=== PATIENT | male | born 1940 | race Two or more races ===

== ENCOUNTER 2018-11-23 01:53 | Inpatient (IN) | payer MEDICARE, BC ==
[2018-11-23] MEDS ORDERED: PROPOFOL 100 ML (02:12)
[2018-11-23] MEDS ORDERED: SODIUM CHLORIDE 0.9% 500 ML BAG IV* (02:12)
[2018-11-23 02:21] LABS: ADD MAN DIFF? NO
[2018-11-23 02:22] LABS: ABNORMAL IP MESSAGE 1; BASOPHIL # 0.1 10^3/ul (0.0-0.1); BASOPHILS % 0.5 % (0.0-2.0); EOSINOPHILS # 0.4 10^3/ul (0.0-0.5); EOSINOPHILS % 1.8 % (0.0-7.0); HEMATOCRIT 50.4 % (42.0-52.0); HEMOGLOBIN 15.1 g/dl (14.0-18.0); LYMPHOCYTES # 6.4 10^3/ul (0.8-2.9); LYMPHOCYTES % 30.8 % (15.0-51.0); MEAN CORPUSCULAR HEMOGLOBIN 27.9 pg (29.0-33.0); MEAN CORPUSCULAR VOLUME 93.2 fl (82.0-101.0); MEAN PLATELET VOLUME 11.6 fl (7.4-10.4); MONOCYTE # 1.4 10^3/ul (0.3-0.9); MONOCYTES % 6.9 % (0.0-11.0); NEUTROPHIL # 12.3 10^3/ul (1.6-7.5); NEUTROPHILS % 59.3 % (39.0-77.0); PLATELET COUNT 244 10^3/UL (140-415); POSITIVE DIFF @See below; RED BLOOD COUNT 5.41 10^6/ul (4.70-6.10); RED CELL DISTRIBUTION WIDTH 14.4 % (11.5-14.5)
[2018-11-23 02:22] LABS: WHITE BLOOD COUNT 20.8 10^3/ul (4.8-10.8)
[2018-11-23] MEDS ORDERED: OCULAR LUBRICANT 3.5 GM OPH OINT BOTH EYES ×2 (02:30→06:00)
[2018-11-23 02:43] LABS: INR 1.02; PROTIME 13.5 Sec (11.9-14.9); PT RATIO 1.1
[2018-11-23 02:44] LABS: ALANINE AMINOTRANSFERASE 42 IU/L (13-69); ALBUMIN 4.2 g/dl (3.3-4.9); ALKALINE PHOSPHATASE 78 IU/L (42-121); ANION GAP 16 (5-13); ASPARTATE AMINO TRANSFERASE 57 IU/L (15-46); BILIRUBIN,INDIRECT 0.3 mg/dl (0-1.1); BILIRUBIN,TOTAL 0.3 mg/dl (0.2-1.3); BLOOD UREA NITROGEN 20 mg/dl (7-20); CALCIUM 9.1 mg/dl (8.4-10.2); CARBON DIOXIDE 23 mmol/L (21-31); CHLORIDE 102 mmol/L (97-110); CREATININE 1.41 mg/dl (0.61-1.24); GLUCOSE 292 mg/dl (70-220); PARTIAL THROMBOPLASTIN TIME 28.1 Sec (23.0-35.0); PHOSPHORUS 5.4 mg/dl (2.5-4.9); POTASSIUM 5.5 mmol/L (3.5-5.1); SODIUM 141 mmol/L (135-144); TOTAL PROTEIN 7.7 g/dl (6.1-8.1)
[2018-11-23 02:55] LABS: TROPONIN-I < 0.012 ng/ml (0.000-0.120)
[2018-11-23] MEDS ORDERED: SOD CHLORIDE 0.9% 1,000 ML IV (03:00)
[2018-11-23] MEDS: VECURONIUM 100 MG in DEXTROSE 5% 100 ML IV (03:11)
[2018-11-23] MEDS: NORepinephrine 8MG/250 ML (PMX 250 ML IV (03:13)
[2018-11-23 03:16] LABS: AADO2 Arterial 507.1 mmHg (7.0-24.0); Allen Test ACCEPTAB; Arterial Base Excess -3.8 mmol/L (-3.0-3); Arterial COHb 0.3 % (0.0-3.0); Arterial Fraction of Oxyhgb 97.5 % (93.0-99.0); Arterial HCO3 24.8 mmol/L (22.0-26.0); Arterial MetHb 0.2 % (0.0-1.5); Arterial pCO2 60.7 mmhg (35-45); MODE VENT - AC; Site Right Radial
[2018-11-23] MEDS ORDERED: ACETAMINOPHEN 650MG/20.3ML CUP PO (04:30)
[2018-11-23] MEDS ORDERED: ACCU-CHEK XX ×2 (04:30→06:00)
[2018-11-23] MEDS ORDERED: MEPERIDINE 25 MG INJ IV ×2 (04:30)
[2018-11-23] MEDS ORDERED: DEXTROSE 50% 50 ML SYRINGE IV ×4 (04:30→06:00)
[2018-11-23] MEDS ORDERED: ACETAMINOPHEN 650 MG SUPP PR (04:30)
[2018-11-23 04:33] LABS: ADD UMIC YES; UR ASCORBIC ACID NEGATIVE (NEGATIVE); UR BACTERIA FEW /HPF (NONE SEEN); UR BILIRUBIN (Dip) NEGATIVE (NEGATIVE); UR BLOOD (Dip) NEGATIVE (NEGATIVE); UR CLARITY SLIGHTLY CLOUDY (CLEAR); UR COLOR YELLOW (YELLOW); UR GLUCOSE (Dip) 1+ mg/dL (NEGATIVE); UR KETONES (Dip) NEGATIVE (NEGATIVE); UR LEUKOCYTE ESTERASE (Dip) NEGATIVE Leu/ul (NEGATIVE); UR NITRITE (Dip) NEGATIVE (NEGATIVE); UR RBC 3 /HPF (0-5); UR SPECIFIC GRAVITY (Dip) 1.012 (1.003-1.030); UR TOTAL PROTEIN (Dip) 3+ mg/dl (NEGATIVE); UR UROBILINOGEN (Dip) NEGATIVE (NEGATIVE); UR WBC 3 /HPF (0-5)
[2018-11-23] MEDS ORDERED: SOD CHLORIDE 0.9% 500 ML IV (05:00)
[2018-11-23] MEDS: SOD CHLORIDE 0.9% 100 ML (05:40)
[2018-11-23] MEDS: IODIXANOL LOCM 100 ML BTL (05:40)
[2018-11-23] MEDS ORDERED: ARTIFICIAL TEARS 15 ML OPH BOTH EYES (06:00)
[2018-11-23] MEDS ORDERED: INSULIN HUMAN REGULAR 100 UNIT in SOD CHLORIDE 0.9% 99 ML IV (06:00)
[2018-11-23] MEDS: SOD CHLORIDE 0.9% 1,000 ML IV ×2 (06:43→21:00)
[2018-11-23] MEDS: PROPOFOL 100 ML IV ×7 (06:43→20:19)
[2018-11-23 06:52] LABS: ADD MAN DIFF? NO
[2018-11-23 06:54] LABS: BASOPHILS % 0.2 % (0.0-2.0); EOSINOPHILS # 0.1 10^3/ul (0.0-0.5); EOSINOPHILS % 0.6 % (0.0-7.0); HEMATOCRIT 39.1 % (42.0-52.0); HEMOGLOBIN 12.1 g/dl (14.0-18.0); LYMPHOCYTES # 0.8 10^3/ul (0.8-2.9); LYMPHOCYTES % 7.3 % (15.0-51.0); MEAN CORPUSCULAR HEMOGLOBIN 27.9 pg (29.0-33.0); MEAN CORPUSCULAR HGB CONC 30.9 g/dl (32.0-37.0); MEAN CORPUSCULAR VOLUME 90.1 fl (82.0-101.0); MEAN PLATELET VOLUME 11.1 fl (7.4-10.4); MONOCYTE # 0.7 10^3/ul (0.3-0.9); MONOCYTES % 6.6 % (0.0-11.0); NEUTROPHIL # 9.2 10^3/ul (1.6-7.5); NEUTROPHILS % 84.5 % (39.0-77.0); PLATELET COUNT 178 10^3/UL (140-415); RED BLOOD COUNT 4.34 10^6/ul (4.70-6.10); RED CELL DISTRIBUTION WIDTH 14.2 % (11.5-14.5)
[2018-11-23 06:54] LABS: WHITE BLOOD COUNT 10.8 10^3/ul (4.8-10.8)
[2018-11-23] MEDS ORDERED: PROPOFOL 200 MG INJ (07:00)
[2018-11-23] MEDS ORDERED: VANCOMYCIN IV PER PHARMACY XX (07:00)
[2018-11-23] MEDS ORDERED: ETOMIDATE 20 MG INJ (07:00)
[2018-11-23] MEDS ORDERED: SUCCINYLCHOLINE CHLORIDE 100 MG/5 ML SYG IV (07:00)
[2018-11-23 07:22] LABS: ALANINE AMINOTRANSFERASE 62 IU/L (13-69); ALBUMIN 3.2 g/dl (3.3-4.9); ALBUMIN/GLOBULIN RATIO 1.18; ALKALINE PHOSPHATASE 61 IU/L (42-121); ANION GAP 8 (5-13); ASPARTATE AMINO TRANSFERASE 63 IU/L (15-46); BILIRUBIN,INDIRECT 0.3 mg/dl (0-1.1); BILIRUBIN,TOTAL 0.3 mg/dl (0.2-1.3); BLOOD UREA NITROGEN 21 mg/dl (7-20); CALCIUM 8.4 mg/dl (8.4-10.2); CARBON DIOXIDE 26 mmol/L (21-31); CHLORIDE 104 mmol/L (97-110); CREATININE 1.38 mg/dl (0.61-1.24); GLUCOSE 217 mg/dl (70-220); POTASSIUM 4.7 mmol/L (3.5-5.1); SODIUM 138 mmol/L (135-144); TOTAL PROTEIN 5.9 g/dl (6.1-8.1)
[2018-11-23 07:28] LABS: MAGNESIUM 1.5 mg/dl (1.7-2.5)
[2018-11-23 07:28] LABS: CREATINE KINASE 78 IU/L (23-200)
[2018-11-23 07:42] LABS: CK-MB 1.59 ng/ml (0.0-2.4); TROPONIN-I 0.076 ng/ml (0.000-0.120)
[2018-11-23] MEDS: PIPER-TAZO 3.375 GM IV (PMX) 100 ML IVPB ×3 (08:22→17:12)
[2018-11-23 08:44] LABS: ADD MAN DIFF? NO
[2018-11-23] MEDS: INSULIN ASPART [NOVOLOG] 3 ML PEN SC ×4 (08:44→20:53)
[2018-11-23 08:53] LABS: BASOPHILS % 0.3 % (0.0-2.0); EOSINOPHILS # 0.1 10^3/ul (0.0-0.5); EOSINOPHILS % 0.5 % (0.0-7.0); HEMATOCRIT 37.8 % (42.0-52.0); HEMOGLOBIN 12.1 g/dl (14.0-18.0); LYMPHOCYTES # 0.9 10^3/ul (0.8-2.9); LYMPHOCYTES % 8.8 % (15.0-51.0); MEAN CORPUSCULAR HEMOGLOBIN 28.2 pg (29.0-33.0); MEAN CORPUSCULAR VOLUME 88.1 fl (82.0-101.0); MONOCYTE # 0.6 10^3/ul (0.3-0.9); MONOCYTES % 5.9 % (0.0-11.0); NEUTROPHIL # 8.5 10^3/ul (1.6-7.5); NEUTROPHILS % 83.9 % (39.0-77.0); PLATELET COUNT 171 10^3/UL (140-415); RED BLOOD COUNT 4.29 10^6/ul (4.70-6.10); RED CELL DISTRIBUTION WIDTH 14.5 % (11.5-14.5)
[2018-11-23 08:53] LABS: WHITE BLOOD COUNT 10.1 10^3/ul (4.8-10.8)
[2018-11-23 09:21] LABS: ALANINE AMINOTRANSFERASE 57 IU/L (13-69); ALBUMIN 3.2 g/dl (3.3-4.9); ALBUMIN/GLOBULIN RATIO 1.14; ALKALINE PHOSPHATASE 49 IU/L (42-121); ANION GAP 10 (5-13); ASPARTATE AMINO TRANSFERASE 52 IU/L (15-46); BILIRUBIN,INDIRECT 0.1 mg/dl (0-1.1); BILIRUBIN,TOTAL 0.1 mg/dl (0.2-1.3); BLOOD UREA NITROGEN 22 mg/dl (7-20); CALCIUM 8.3 mg/dl (8.4-10.2); CARBON DIOXIDE 25 mmol/L (21-31); CHLORIDE 101 mmol/L (97-110); CREATINE KINASE 73 IU/L (23-200); CREATININE 1.38 mg/dl (0.61-1.24); GLUCOSE 197 mg/dl (70-220); POTASSIUM 4.3 mmol/L (3.5-5.1); SODIUM 136 mmol/L (135-144)
[2018-11-23 09:36] LABS: CK INDEX 2.2; CK-MB 1.63 ng/ml (0.0-2.4); TROPONIN-I 0.091 ng/ml (0.000-0.120)
[2018-11-23 09:56] LABS: MAGNESIUM 1.5 mg/dl (1.7-2.5)
[2018-11-23 10:03] LABS: B-TYPE NATRIURETIC PEPTIDE 2490 PG/ML (0-450)
[2018-11-23 10:28] LABS: AADO2 Arterial 396.3 mmHg (7.0-24.0); Allen Test ACCEPTAB; Arterial Base Excess -0.1 mmol/L (-3.0-3); Arterial Blood Gas Oxygen Sat 98.5 mmHG (95.0-100.0); Arterial COHb 0.3 % (0.0-3.0); Arterial Fraction of Oxyhgb 98.1 % (93.0-99.0); Arterial HCO3 23.5 mmol/L (22.0-26.0); Arterial MetHb 0.1 % (0.0-1.5); Arterial pCO2 34.9 mmhg (35-45); MODE VENT - AC; Site Right Radial
[2018-11-23 10:47] LABS: AADO2 Arterial 416.9 mmHg (7.0-24.0); Arterial Base Excess -0.2 mmol/L (-3.0-3); Arterial Blood Gas Oxygen Sat 97.7 mmHG (95.0-100.0); Arterial COHb 0.3 % (0.0-3.0); Arterial Fraction of Oxyhgb 97.2 % (93.0-99.0); Arterial HCO3 25.3 mmol/L (22.0-26.0); Arterial MetHb 0.2 % (0.0-1.5); Arterial pCO2 44.5 mmhg (35-45); MODE VENT - AC; Site Right Radial
[2018-11-23] MEDS: VANCOMYCIN HCL 2 GM in SOD CHLORIDE 0.9% 500 ML IVPB (11:13)
[2018-11-23] MEDS: ASPIRIN 300 MG SUPP PR (13:00)
[2018-11-23] MEDS: MAGNESIUM SULFATE 2 GM/50 ML 50 ML IVPB (15:08)
[2018-11-23 17:41] LABS: CREATINE KINASE 56 IU/L (23-200)
[2018-11-23 17:54] LABS: CK INDEX 2.2; CK-MB 1.25 ng/ml (0.0-2.4); TROPONIN-I 0.053 ng/ml (0.000-0.120)
[2018-11-23] MEDS: VANCOMYCIN 750 MG (PMX) 250 ML IVPB (21:00)
[2018-11-23 23:12] LABS: CREATINE KINASE 56 IU/L (23-200)
[2018-11-23 23:22] LABS: CK INDEX 1.7; CK-MB 0.96 ng/ml (0.0-2.4); TROPONIN-I 0.056 ng/ml (0.000-0.120)
[2018-11-24] MEDS: PIPER-TAZO 3.375 GM IV (PMX) 100 ML IVPB ×4 (00:03→17:40)
[2018-11-24] MEDS: INSULIN ASPART [NOVOLOG] 3 ML PEN SC ×6 (00:10→21:00)
[2018-11-24] MEDS: PROPOFOL 100 ML IV ×6 (03:29→21:48)
[2018-11-24] MEDS ORDERED: ACETAMINOPHEN 650MG/20.3ML CUP PO (04:30)
[2018-11-24] MEDS ORDERED: ACETAMINOPHEN 650 MG SUPP PR (04:30)
[2018-11-24 05:19] LABS: ADD MAN DIFF? NO
[2018-11-24 05:26] LABS: BASOPHILS % 0.4 % (0.0-2.0); EOSINOPHILS # 0.2 10^3/ul (0.0-0.5); EOSINOPHILS % 1.9 % (0.0-7.0); HEMATOCRIT 36.1 % (42.0-52.0); HEMOGLOBIN 11.3 g/dl (14.0-18.0); LYMPHOCYTES # 0.7 10^3/ul (0.8-2.9); LYMPHOCYTES % 7.8 % (15.0-51.0); MEAN CORPUSCULAR HEMOGLOBIN 27.8 pg (29.0-33.0); MEAN CORPUSCULAR HGB CONC 31.3 g/dl (32.0-37.0); MEAN CORPUSCULAR VOLUME 88.9 fl (82.0-101.0); MEAN PLATELET VOLUME 11.5 fl (7.4-10.4); MONOCYTE # 0.5 10^3/ul (0.3-0.9); MONOCYTES % 5.4 % (0.0-11.0); NEUTROPHIL # 7.5 10^3/ul (1.6-7.5); NEUTROPHILS % 84.1 % (39.0-77.0); PLATELET COUNT 152 10^3/UL (140-415); RED BLOOD COUNT 4.06 10^6/ul (4.70-6.10); RED CELL DISTRIBUTION WIDTH 14.4 % (11.5-14.5)
[2018-11-24 05:51] LABS: INR 1.14; PROTIME 14.7 Sec (11.9-14.9); PT RATIO 1.1
[2018-11-24 06:02] LABS: CREATINE KINASE 44 IU/L (23-200)
[2018-11-24 06:12] LABS: CHOL/HDL RATIO 8.1 RATIO; HDL CHOLESTEROL 20 mg/dl (31-75); LDL CHOLESTEROL,CALCULATED 49 mg/dl; TRIGLYCERIDES 472 mg/dl (0-149)
[2018-11-24 06:12] LABS: CHOLESTEROL 163 mg/dl (100-200)
[2018-11-24 06:16] LABS: CK INDEX 1.1; CK-MB 0.47 ng/ml (0.0-2.4); TROPONIN-I 0.044 ng/ml (0.000-0.120)
[2018-11-24 06:19] LABS: B-TYPE NATRIURETIC PEPTIDE 1320 PG/ML (0-450)
[2018-11-24 06:20] LABS: ALANINE AMINOTRANSFERASE 46 IU/L (13-69); ALBUMIN/GLOBULIN RATIO 1.07; ALKALINE PHOSPHATASE 41 IU/L (42-121); ANION GAP 10 (5-13); ASPARTATE AMINO TRANSFERASE 27 IU/L (15-46); BILIRUBIN,INDIRECT 0.2 mg/dl (0-1.1); BILIRUBIN,TOTAL 0.2 mg/dl (0.2-1.3); BLOOD UREA NITROGEN 21 mg/dl (7-20); CALCIUM 7.9 mg/dl (8.4-10.2); CARBON DIOXIDE 26 mmol/L (21-31); CHLORIDE 104 mmol/L (97-110); CREATININE 1.61 mg/dl (0.61-1.24); GLUCOSE 147 mg/dl (70-220); MAGNESIUM 1.9 mg/dl (1.7-2.5); SODIUM 140 mmol/L (135-144); TOTAL PROTEIN 5.8 g/dl (6.1-8.1)
[2018-11-24] MEDS: SOD CHLORIDE 0.9% 1,000 ML IV ×2 (07:00→17:31)
[2018-11-24 07:34] LABS: HEMOGLOBIN A1C 7.4 % (0-5.9)
[2018-11-24] MEDS: ASPIRIN 300 MG SUPP PR (09:00)
[2018-11-24] MEDS: VANCOMYCIN 750 MG (PMX) 250 ML IVPB ×2 (09:35→22:53)
[2018-11-24 10:19] LABS: AADO2 Arterial 88.3 mmHg (7.0-24.0); Allen Test ACCEPTAB; Arterial Base Excess -0.6 mmol/L (-3.0-3); Arterial Blood Gas Oxygen Sat 94.2 mmHG (95.0-100.0); Arterial COHb 0.3 % (0.0-3.0); Arterial Fraction of Oxyhgb 93.7 % (93.0-99.0); Arterial HCO3 24.6 mmol/L (22.0-26.0); Arterial MetHb 0.2 % (0.0-1.5); Arterial pCO2 42.4 mmhg (35-45); Blood Gas PS 10; MODE VENT - CPAP; Site Right Radial
[2018-11-24] MEDS: FAMOTIDINE 20 MG INJ IV (11:40)
[2018-11-24] MEDS: ENOXAPARIN 40 MG/0.4 ML SYG SC (11:58)
[2018-11-24] MEDS ORDERED: ETOMIDATE 20 MG INJ (12:00)
[2018-11-24] MEDS ORDERED: ROCURONIUM 50 MG INJ (12:00)
[2018-11-24 13:55] LABS: AADO2 Arterial 564.5 mmHg (7.0-24.0); Allen Test ACCEPTAB; Arterial Base Excess -5.5 mmol/L (-3.0-3); Arterial Blood Gas Oxygen Sat 95.2 mmHG (95.0-100.0); Arterial COHb 0.3 % (0.0-3.0); Arterial Fraction of Oxyhgb 94.7 % (93.0-99.0); Arterial HCO3 22.9 mmol/L (22.0-26.0); Arterial MetHb 0.2 % (0.0-1.5); MODE VENT - AC; Site Right Radial
[2018-11-24] MEDS ORDERED: LEVALBUTEROL (NEB) 0.63 MG/3 ML AMP HHN (14:00)
[2018-11-24] MEDS: ASPIRIN 81 MG TAB NGT (14:11)
[2018-11-24] MEDS: ACETAMINOPHEN 650MG/20.3ML CUP NGT ×2 (14:12→18:36)
[2018-11-24] MEDS: ALBUTEROL HFA 8 GM INHALER INH (20:09)
[2018-11-24] MEDS ORDERED: ATORVASTATIN 40 MG TAB PO (21:00)
[2018-11-24] MEDS: ATORVASTATIN 40 MG TAB NGT (21:49)
[2018-11-24 22:40] LABS: VANCOMYCIN,TROUGH 14.3 ug/ml (10.0-20.0)
[2018-11-25] MEDS: PIPER-TAZO 3.375 GM IV (PMX) 100 ML IVPB ×4 (00:25→22:46)
[2018-11-25] MEDS: INSULIN ASPART [NOVOLOG] 3 ML PEN SC ×6 (00:32→21:00)
[2018-11-25] MEDS: MIDAZOLAM (DRIP) 50 mg/50 mL 50 ML IV ×6 (00:58→22:53)
[2018-11-25] MEDS: PROPOFOL 100 ML IV ×2 (01:04→09:10)
[2018-11-25] MEDS: ALBUTEROL HFA 8 GM INHALER INH ×4 (01:35→20:15)
[2018-11-25 05:11] LABS: ADD MAN DIFF? NO
[2018-11-25 05:17] LABS: WHITE BLOOD COUNT 7.4 10^3/ul (4.8-10.8)
[2018-11-25 05:17] LABS: BASOPHILS % 0.5 % (0.0-2.0); EOSINOPHILS # 0.2 10^3/ul (0.0-0.5); EOSINOPHILS % 2.2 % (0.0-7.0); HEMATOCRIT 32.9 % (42.0-52.0); HEMOGLOBIN 10.4 g/dl (14.0-18.0); LYMPHOCYTES # 0.9 10^3/ul (0.8-2.9); LYMPHOCYTES % 11.7 % (15.0-51.0); MEAN CORPUSCULAR HEMOGLOBIN 28.3 pg (29.0-33.0); MEAN CORPUSCULAR HGB CONC 31.6 g/dl (32.0-37.0); MEAN CORPUSCULAR VOLUME 89.6 fl (82.0-101.0); MEAN PLATELET VOLUME 12.1 fl (7.4-10.4); MONOCYTE # 0.5 10^3/ul (0.3-0.9); MONOCYTES % 6.1 % (0.0-11.0); NEUTROPHIL # 5.8 10^3/ul (1.6-7.5); NEUTROPHILS % 79.1 % (39.0-77.0); PLATELET COUNT 149 10^3/UL (140-415); RED BLOOD COUNT 3.67 10^6/ul (4.70-6.10); RED CELL DISTRIBUTION WIDTH 14.8 % (11.5-14.5)
[2018-11-25] MEDS: SOD CHLORIDE 0.9% 1,000 ML IV (05:24)
[2018-11-25 05:29] LABS: CREATINE KINASE 45 IU/L (23-200)
[2018-11-25 05:39] LABS: ALANINE AMINOTRANSFERASE 29 IU/L (13-69); ALBUMIN 2.7 g/dl (3.3-4.9); ALBUMIN/GLOBULIN RATIO 1.12; ALKALINE PHOSPHATASE 34 IU/L (42-121); ANION GAP 13 (5-13); ASPARTATE AMINO TRANSFERASE 18 IU/L (15-46); B-TYPE NATRIURETIC PEPTIDE 2780 PG/ML (0-450); BILIRUBIN,INDIRECT 0.2 mg/dl (0-1.1); BILIRUBIN,TOTAL 0.2 mg/dl (0.2-1.3); BLOOD UREA NITROGEN 23 mg/dl (7-20); CALCIUM 7.5 mg/dl (8.4-10.2); CARBON DIOXIDE 22 mmol/L (21-31); CHLORIDE 107 mmol/L (97-110); CREATININE 2.16 mg/dl (0.61-1.24); GLUCOSE 134 mg/dl (70-220); MAGNESIUM 1.8 mg/dl (1.7-2.5); POTASSIUM 3.7 mmol/L (3.5-5.1); SODIUM 142 mmol/L (135-144); TOTAL PROTEIN 5.1 g/dl (6.1-8.1)
[2018-11-25 05:41] LABS: CK INDEX 0.6; CK-MB 0.27 ng/ml (0.0-2.4); TROPONIN-I 0.046 ng/ml (0.000-0.120)
[2018-11-25] MEDS: ASPIRIN 81 MG TAB NGT (09:04)
[2018-11-25] MEDS: FAMOTIDINE 20 MG INJ IV (09:05)
[2018-11-25] MEDS: ENOXAPARIN 40 MG/0.4 ML SYG SC (09:07)
[2018-11-25] MEDS ORDERED: ALTEPLASE (CATHFLO) 2 MG INJ CATHETER (09:30)
[2018-11-25] MEDS: VANCOMYCIN 750 MG (PMX) 250 ML IVPB (10:10)
[2018-11-25] MEDS: FUROSEMIDE 40 MG INJ IV (10:17)
[2018-11-25] MEDS ORDERED: FUROSEMIDE 40 MG INJ IV (10:30)
[2018-11-25] MEDS ORDERED: FENTAnyl (DRIP) 1000 mcg/100mL 100 ML IV (11:00)
[2018-11-25] MEDS: FENTAnyl (DRIP) 1000 mcg/100mL 100 ML IV ×2 (12:15→22:42)
[2018-11-25] MEDS: ACETAMINOPHEN 650MG/20.3ML CUP NGT (14:23)
[2018-11-25 15:38] LABS: CREATININE,URINE RANDOM 31.59 mg/dl (20-370)
[2018-11-25 15:39] LABS: SODIUM,URINE RANDOM 127 mmol/L (30-90)
[2018-11-25 16:08] LABS: UR COLOR STRAW (YELLOW)
[2018-11-25 16:09] LABS: ADD UMIC YES; UR ASCORBIC ACID NEGATIVE (NEGATIVE); UR BILIRUBIN (Dip) NEGATIVE (NEGATIVE); UR BLOOD (Dip) 2+ mg/dL (NEGATIVE); UR CLARITY CLEAR (CLEAR); UR GLUCOSE (Dip) NEGATIVE (NEGATIVE); UR KETONES (Dip) NEGATIVE (NEGATIVE); UR LEUKOCYTE ESTERASE (Dip) 1+ Leu/ul (NEGATIVE); UR NITRITE (Dip) NEGATIVE (NEGATIVE); UR TOTAL PROTEIN (Dip) 1+ mg/dl (NEGATIVE); UR UROBILINOGEN (Dip) NEGATIVE (NEGATIVE); URINE PH (Dip) 5 (5.0-9.0)
[2018-11-25 16:18] LABS: UR AMORPHOUS CRYSTAL FEW /HPF (NONE SEEN); UR RBC 76 /HPF (0-5); UR WBC 15 /HPF (0-5)
[2018-11-25] MEDS: ATORVASTATIN 40 MG TAB NGT (20:40)
[2018-11-25] MEDS ORDERED: hydrALAzine 20 MG INJ (21:05)
[2018-11-25] MEDS: hydrALAzine 20 MG INJ IV (21:34)
[2018-11-25] MEDS: VANCOMYCIN HCL 1.25 GM in SOD CHLORIDE 0.9% 250 ML IVPB (22:47)
[2018-11-25] MEDS: LABETALOL HCL 20MG INJ IV (23:11)
[2018-11-26] MEDS: INSULIN ASPART [NOVOLOG] 3 ML PEN SC ×6 (00:49→21:00)
[2018-11-26] MEDS: ACETAMINOPHEN 650MG/20.3ML CUP NGT (00:51)
[2018-11-26] MEDS: ALBUTEROL HFA 8 GM INHALER INH ×4 (01:23→20:32)
[2018-11-26] MEDS: LORAZEPAM 2 MG INJ IV ×2 (01:36→06:46)
[2018-11-26] MEDS: hydrALAzine 20 MG INJ IV ×4 (01:36→23:35)
[2018-11-26 05:12] LABS: ADD MAN DIFF? NO
[2018-11-26 05:15] LABS: BASOPHILS % 0.4 % (0.0-2.0); EOSINOPHILS # 0.3 10^3/ul (0.0-0.5); EOSINOPHILS % 3.6 % (0.0-7.0); HEMATOCRIT 32.9 % (42.0-52.0); HEMOGLOBIN 10.4 g/dl (14.0-18.0); LYMPHOCYTES # 0.9 10^3/ul (0.8-2.9); LYMPHOCYTES % 13.3 % (15.0-51.0); MEAN CORPUSCULAR HEMOGLOBIN 28.4 pg (29.0-33.0); MEAN CORPUSCULAR HGB CONC 31.6 g/dl (32.0-37.0); MEAN CORPUSCULAR VOLUME 89.9 fl (82.0-101.0); MEAN PLATELET VOLUME 11.6 fl (7.4-10.4); MONOCYTE # 0.4 10^3/ul (0.3-0.9); MONOCYTES % 6.4 % (0.0-11.0); NEUTROPHIL # 5.2 10^3/ul (1.6-7.5); NEUTROPHILS % 75.7 % (39.0-77.0); PLATELET COUNT 155 10^3/UL (140-415); RED BLOOD COUNT 3.66 10^6/ul (4.70-6.10); RED CELL DISTRIBUTION WIDTH 14.8 % (11.5-14.5)
[2018-11-26 05:15] LABS: WHITE BLOOD COUNT 6.9 10^3/ul (4.8-10.8)
[2018-11-26 05:31] LABS: ANION GAP 7 (5-13); BLOOD UREA NITROGEN 23 mg/dl (7-20); CALCIUM 8.3 mg/dl (8.4-10.2); CARBON DIOXIDE 24 mmol/L (21-31); CHLORIDE 112 mmol/L (97-110); CREATININE 2.08 mg/dl (0.61-1.24); GLUCOSE 155 mg/dl (70-220); PHOSPHORUS 3.3 mg/dl (2.5-4.9); POTASSIUM 3.5 mmol/L (3.5-5.1); SODIUM 143 mmol/L (135-144)
[2018-11-26 05:42] LABS: ALANINE AMINOTRANSFERASE 24 IU/L (13-69); ALKALINE PHOSPHATASE 39 IU/L (42-121); ANION GAP 9 (5-13); ASPARTATE AMINO TRANSFERASE 18 IU/L (15-46); BILIRUBIN,INDIRECT 0.3 mg/dl (0-1.1); BILIRUBIN,TOTAL 0.3 mg/dl (0.2-1.3); BLOOD UREA NITROGEN 23 mg/dl (7-20); CALCIUM 8.1 mg/dl (8.4-10.2); CARBON DIOXIDE 25 mmol/L (21-31); CHLORIDE 109 mmol/L (97-110); CREATININE 2.25 mg/dl (0.61-1.24); GLUCOSE 157 mg/dl (70-220); MAGNESIUM 1.9 mg/dl (1.7-2.5); POTASSIUM 3.3 mmol/L (3.5-5.1); SODIUM 143 mmol/L (135-144)
[2018-11-26 05:48] LABS: B-TYPE NATRIURETIC PEPTIDE 3290 PG/ML (0-450)
[2018-11-26] MEDS: PIPER-TAZO 3.375 GM IV (PMX) 100 ML IVPB ×3 (06:42→21:15)
[2018-11-26] MEDS: ASPIRIN 81 MG TAB NGT (08:32)
[2018-11-26] MEDS: FAMOTIDINE 20 MG INJ IV (08:32)
[2018-11-26] MEDS: POTASSIUM CHLORIDE 20 MEQ POWDER FOR ORAL SOLN GTB (08:32)
[2018-11-26] MEDS: FUROSEMIDE 40 MG INJ IV (08:33)
[2018-11-26] MEDS: ENOXAPARIN 60 MG/0.6 ML SYG SC (08:34)
[2018-11-26] MEDS: MIDAZOLAM (DRIP) 50 mg/50 mL 50 ML IV ×3 (09:44→19:56)
[2018-11-26] MEDS: PROPOFOL 100 ML IV ×2 (10:09→21:58)
[2018-11-26] MEDS: ASCORBIC ACID 500 MG TAB NGT (11:31)
[2018-11-26] MEDS: ZINC SULFATE 220 MG CAP NGT (11:31)
[2018-11-26] MEDS: FENTAnyl (DRIP) 1000 mcg/100mL 100 ML IV ×2 (11:39→22:15)
[2018-11-26] MEDS ORDERED: POTASSIUM CHLORIDE 100 ML IVPB (13:30)
[2018-11-26] MEDS: POTASSIUM CHLORIDE 20 MEQ POWDER FOR ORAL SOLN NGT (13:39)
[2018-11-26] MEDS: ISOSORBIDE DINITRATE 20 MG TAB NGT ×2 (14:23→21:14)
[2018-11-26] MEDS: INSULIN GLARGINE [LANTus] (100 UNITS/ML) SYG SC (18:48)
[2018-11-26] MEDS: ATORVASTATIN 40 MG TAB NGT (21:14)
[2018-11-26] MEDS: BALSAM PERU/CASTOR OIL 60 GM TUBE TOP (21:17)
[2018-11-26] MEDS: VANCOMYCIN HCL 1.25 GM in SOD CHLORIDE 0.9% 250 ML IVPB (22:16)
[2018-11-27] MEDS: INSULIN ASPART [NOVOLOG] 3 ML PEN SC ×6 (01:09→21:04)
[2018-11-27] MEDS: ALBUTEROL HFA 8 GM INHALER INH ×4 (01:41→19:43)
[2018-11-27] MEDS: MIDAZOLAM (DRIP) 50 mg/50 mL 50 ML IV ×2 (02:09→11:52)
[2018-11-27] MEDS ORDERED: ALTEPLASE (CATHFLO) 2 MG INJ CATHETER (04:30)
[2018-11-27] MEDS: PIPER-TAZO 3.375 GM IV (PMX) 100 ML IVPB ×3 (05:02→21:02)
[2018-11-27 05:29] LABS: ADD MAN DIFF? NO
[2018-11-27 05:32] LABS: WHITE BLOOD COUNT 5.9 10^3/ul (4.8-10.8)
[2018-11-27 05:32] LABS: BASOPHILS % 0.3 % (0.0-2.0); EOSINOPHILS # 0.3 10^3/ul (0.0-0.5); EOSINOPHILS % 5.5 % (0.0-7.0); HEMATOCRIT 34.8 % (42.0-52.0); HEMOGLOBIN 10.8 g/dl (14.0-18.0); LYMPHOCYTES # 0.8 10^3/ul (0.8-2.9); LYMPHOCYTES % 13.8 % (15.0-51.0); MEAN CORPUSCULAR HEMOGLOBIN 27.8 pg (29.0-33.0); MEAN CORPUSCULAR VOLUME 89.7 fl (82.0-101.0); MEAN PLATELET VOLUME 11.4 fl (7.4-10.4); MONOCYTE # 0.4 10^3/ul (0.3-0.9); NEUTROPHIL # 4.3 10^3/ul (1.6-7.5); NEUTROPHILS % 73.1 % (39.0-77.0); PLATELET COUNT 184 10^3/UL (140-415); RED BLOOD COUNT 3.88 10^6/ul (4.70-6.10); RED CELL DISTRIBUTION WIDTH 14.9 % (11.5-14.5)
[2018-11-27 05:44] LABS: AADO2 Arterial 177.5 mmHg (7.0-24.0); Allen Test ACCEPTAB; Arterial Base Excess 0.7 mmol/L (-3.0-3); Arterial Blood Gas Oxygen Sat 93.6 mmHG (95.0-100.0); Arterial COHb 0.3 % (0.0-3.0); Arterial Fraction of Oxyhgb 93.3 % (93.0-99.0); Arterial HCO3 23.8 mmol/L (22.0-26.0); Arterial MetHb 0 % (0.0-1.5); Arterial pCO2 32.7 mmhg (35-45); Blood Gas Mean Airway Pressure 14; MODE VENT - AC; Site Right Radial
[2018-11-27 05:54] LABS: ANION GAP 12 (5-13); BLOOD UREA NITROGEN 27 mg/dl (7-20); CALCIUM 8.2 mg/dl (8.4-10.2); CARBON DIOXIDE 22 mmol/L (21-31); CHLORIDE 111 mmol/L (97-110); CREATININE 2.09 mg/dl (0.61-1.24); GLUCOSE 165 mg/dl (70-220); MAGNESIUM 1.9 mg/dl (1.7-2.5); PHOSPHORUS 3.1 mg/dl (2.5-4.9); POTASSIUM 3.7 mmol/L (3.5-5.1); SODIUM 145 mmol/L (135-144)
[2018-11-27] MEDS ORDERED: POTASSIUM CHLORIDE (SR) 20 MEQ TAB PO (08:30)
[2018-11-27 09:23] LABS: IRON 12 ug/dl (35-150)
[2018-11-27 09:34] LABS: % IRON SATURATION 5 % SAT (22-52); TOTAL IRON BINDING CAPACITY 245 ug/dl (241-421)
[2018-11-27] MEDS: INSULIN GLARGINE [LANTus] (100 UNITS/ML) SYG SC (09:50)
[2018-11-27] MEDS: BALSAM PERU/CASTOR OIL 60 GM TUBE TOP ×2 (09:51→20:16)
[2018-11-27] MEDS: ASCORBIC ACID 500 MG TAB NGT (09:52)
[2018-11-27] MEDS: ISOSORBIDE DINITRATE 20 MG TAB NGT ×3 (09:52→20:16)
[2018-11-27] MEDS: ASPIRIN 81 MG TAB NGT (09:52)
[2018-11-27] MEDS: ZINC SULFATE 220 MG CAP NGT (09:53)
[2018-11-27] MEDS: POTASSIUM CHLORIDE 20 MEQ POWDER FOR ORAL SOLN PO (09:53)
[2018-11-27] MEDS: FISH OIL 1,000 MG CAP PO ×2 (09:53→20:14)
[2018-11-27] MEDS: ACETAMINOPHEN 650MG/20.3ML CUP NGT (09:54)
[2018-11-27] MEDS: ENOXAPARIN 30 MG/0.3 ML SYG SC (09:57)
[2018-11-27] MEDS: FAMOTIDINE 20 MG INJ IV (10:03)
[2018-11-27] MEDS: FUROSEMIDE 40 MG INJ IV (10:04)
[2018-11-27] MEDS: PROPOFOL 100 ML IV ×2 (10:30→21:31)
[2018-11-27] MEDS: FENTAnyl (DRIP) 1000 mcg/100mL 100 ML IV (11:51)
[2018-11-27 11:56] LABS: PROCALCITONIN 0.62 ng/mL (<0.10)
[2018-11-27] MEDS: LORAZEPAM 2 MG INJ IV (14:46)
[2018-11-27] MEDS: SOD FERRIC GLUC COMPLX 125 MG in SOD CHLORIDE 0.9% 100 ML IVPB (18:31)
[2018-11-27] MEDS: ATORVASTATIN 40 MG TAB NGT (20:14)
[2018-11-27] MEDS: VANCOMYCIN HCL 1.25 GM in SOD CHLORIDE 0.9% 250 ML IVPB (22:29)
[2018-11-28] MEDS: MIDAZOLAM (DRIP) 50 mg/50 mL 50 ML IV (01:00)
[2018-11-28] MEDS: INSULIN ASPART [NOVOLOG] 3 ML PEN SC ×6 (01:00→20:33)
[2018-11-28] MEDS: ALBUTEROL HFA 8 GM INHALER INH ×4 (01:05→19:20)
[2018-11-28] MEDS: PIPER-TAZO 3.375 GM IV (PMX) 100 ML IVPB (05:06)
[2018-11-28 05:12] LABS: ADD MAN DIFF? NO
[2018-11-28 05:22] LABS: WHITE BLOOD COUNT 5.6 10^3/ul (4.8-10.8)
[2018-11-28 05:22] LABS: BASOPHILS % 0.4 % (0.0-2.0); EOSINOPHILS # 0.3 10^3/ul (0.0-0.5); EOSINOPHILS % 5.4 % (0.0-7.0); HEMATOCRIT 33.2 % (42.0-52.0); HEMOGLOBIN 10.3 g/dl (14.0-18.0); LYMPHOCYTES # 0.9 10^3/ul (0.8-2.9); LYMPHOCYTES % 15.6 % (15.0-51.0); MEAN CORPUSCULAR HEMOGLOBIN 27.6 pg (29.0-33.0); MEAN PLATELET VOLUME 11.6 fl (7.4-10.4); MONOCYTE # 0.5 10^3/ul (0.3-0.9); MONOCYTES % 8.6 % (0.0-11.0); NEUTROPHIL # 3.9 10^3/ul (1.6-7.5); NEUTROPHILS % 69.5 % (39.0-77.0); PLATELET COUNT 192 10^3/UL (140-415); RED BLOOD COUNT 3.73 10^6/ul (4.70-6.10); RED CELL DISTRIBUTION WIDTH 15.1 % (11.5-14.5)
[2018-11-28 05:49] LABS: PHOSPHORUS 3.5 mg/dl (2.5-4.9)
[2018-11-28 05:53] LABS: ALANINE AMINOTRANSFERASE 19 IU/L (13-69); ALBUMIN 3.2 g/dl (3.3-4.9); ALKALINE PHOSPHATASE 43 IU/L (42-121); ANION GAP 12 (5-13); ASPARTATE AMINO TRANSFERASE 20 IU/L (15-46); BILIRUBIN,INDIRECT 0.3 mg/dl (0-1.1); BILIRUBIN,TOTAL 0.3 mg/dl (0.2-1.3); BLOOD UREA NITROGEN 31 mg/dl (7-20); CALCIUM 8.5 mg/dl (8.4-10.2); CARBON DIOXIDE 25 mmol/L (21-31); CHLORIDE 110 mmol/L (97-110); CREATININE 2.25 mg/dl (0.61-1.24); GLUCOSE 160 mg/dl (70-220); POTASSIUM 3.7 mmol/L (3.5-5.1); SODIUM 147 mmol/L (135-144); TOTAL PROTEIN 6.1 g/dl (6.1-8.1)
[2018-11-28 08:48] LABS: AADO2 Arterial 177.1 mmHg (7.0-24.0); Allen Test ACCEPTAB; Arterial Base Excess 0.9 mmol/L (-3.0-3); Arterial Blood Gas Oxygen Sat 94.9 mmHG (95.0-100.0); Arterial COHb 0.1 % (0.0-3.0); Arterial Fraction of Oxyhgb 94.5 % (93.0-99.0); Arterial HCO3 23.4 mmol/L (22.0-26.0); Arterial MetHb 0.3 % (0.0-1.5); Arterial pCO2 30.9 mmhg (35-45); MODE VENT - AC; Site Right Radial
[2018-11-28] MEDS: FUROSEMIDE 40 MG INJ IV (09:19)
[2018-11-28] MEDS: FAMOTIDINE 20 MG INJ IV (09:22)
[2018-11-28] MEDS: ISOSORBIDE DINITRATE 20 MG TAB NGT ×3 (09:23→20:23)
[2018-11-28] MEDS: ASPIRIN 81 MG TAB NGT (09:23)
[2018-11-28] MEDS: ZINC SULFATE 220 MG CAP NGT (09:23)
[2018-11-28] MEDS: ASCORBIC ACID 500 MG TAB NGT (09:23)
[2018-11-28] MEDS: FISH OIL 1,000 MG CAP PO ×2 (09:24→20:25)
[2018-11-28] MEDS: ENOXAPARIN 30 MG/0.3 ML SYG SC (09:25)
[2018-11-28] MEDS: INSULIN GLARGINE [LANTus] (100 UNITS/ML) SYG SC (09:32)
[2018-11-28] MEDS: BALSAM PERU/CASTOR OIL 60 GM TUBE TOP ×2 (09:33→20:25)
[2018-11-28] MEDS: DEXMEDETOMIDINE HCL 200 MCG in SOD CHLORIDE 0.9% 48 ML IV ×3 (09:43→23:36)
[2018-11-28] MEDS: PROPOFOL 100 ML IV ×2 (10:30→20:26)
[2018-11-28] MEDS: SOD FERRIC GLUC COMPLX 125 MG in SOD CHLORIDE 0.9% 100 ML IVPB (13:06)
[2018-11-28] MEDS: LEVOFLOXACIN 250 MG TAB NGT (13:08)
[2018-11-28] MEDS: FENTAnyl (DRIP) 1000 mcg/100mL 100 ML IV (13:10)
[2018-11-28] MEDS: CLINDAMYCIN 300 MG/D5W (PMX) 50 ML IVPB ×3 (14:44→23:37)
[2018-11-28] MEDS: POTASSIUM CHLORIDE 100 ML IVPB (18:04)
[2018-11-28] MEDS: ATORVASTATIN 40 MG TAB NGT (20:23)
[2018-11-28 21:31] LABS: VANCOMYCIN,TROUGH 16.2 ug/ml (10.0-20.0)
[2018-11-28] MEDS: ACETAMINOPHEN 650MG/20.3ML CUP NGT (21:36)
[2018-11-28] MEDS: VANCOMYCIN HCL 1.25 GM in SOD CHLORIDE 0.9% 250 ML IVPB (23:37)
[2018-11-29] MEDS: ALBUTEROL HFA 8 GM INHALER INH ×4 (01:17→19:55)
[2018-11-29] MEDS: INSULIN ASPART [NOVOLOG] 3 ML PEN SC ×7 (01:45→23:46)
[2018-11-29] MEDS: hydrALAzine 20 MG INJ IV (03:34)
[2018-11-29] MEDS: CLINDAMYCIN 300 MG/D5W (PMX) 50 ML IVPB ×4 (05:07→23:07)
[2018-11-29] MEDS: LEVOFLOXACIN 250 MG TAB NGT (05:08)
[2018-11-29 05:21] LABS: ADD MAN DIFF? NO
[2018-11-29 05:28] LABS: WHITE BLOOD COUNT 6.5 10^3/ul (4.8-10.8)
[2018-11-29 05:28] LABS: BASOPHILS % 0.5 % (0.0-2.0); EOSINOPHILS # 0.3 10^3/ul (0.0-0.5); EOSINOPHILS % 4.5 % (0.0-7.0); HEMOGLOBIN 10.3 g/dl (14.0-18.0); LYMPHOCYTES # 1.2 10^3/ul (0.8-2.9); MEAN CORPUSCULAR HEMOGLOBIN 27.5 pg (29.0-33.0); MEAN CORPUSCULAR HGB CONC 30.3 g/dl (32.0-37.0); MEAN CORPUSCULAR VOLUME 90.7 fl (82.0-101.0); MEAN PLATELET VOLUME 11.6 fl (7.4-10.4); MONOCYTE # 0.7 10^3/ul (0.3-0.9); MONOCYTES % 10.6 % (0.0-11.0); NEUTROPHIL # 4.3 10^3/ul (1.6-7.5); NEUTROPHILS % 65.8 % (39.0-77.0); PLATELET COUNT 208 10^3/UL (140-415); RED BLOOD COUNT 3.75 10^6/ul (4.70-6.10); RED CELL DISTRIBUTION WIDTH 15.2 % (11.5-14.5)
[2018-11-29 06:02] LABS: ANION GAP 8 (5-13); BLOOD UREA NITROGEN 37 mg/dl (7-20); CALCIUM 9.1 mg/dl (8.4-10.2); CARBON DIOXIDE 25 mmol/L (21-31); CHLORIDE 114 mmol/L (97-110); CREATININE 2.56 mg/dl (0.61-1.24); GLUCOSE 195 mg/dl (70-220); MAGNESIUM 2.3 mg/dl (1.7-2.5); PHOSPHORUS 3.5 mg/dl (2.5-4.9); POTASSIUM 3.8 mmol/L (3.5-5.1); SODIUM 147 mmol/L (135-144)
[2018-11-29] MEDS: ACETAMINOPHEN 650MG/20.3ML CUP NGT (06:58)
[2018-11-29] MEDS: FENTAnyl (DRIP) 1000 mcg/100mL 100 ML IV (07:07)
[2018-11-29] MEDS: INSULIN GLARGINE [LANTus] (100 UNITS/ML) SYG SC (08:36)
[2018-11-29] MEDS: ENOXAPARIN 30 MG/0.3 ML SYG SC (08:37)
[2018-11-29] MEDS: ASPIRIN 81 MG TAB NGT (08:39)
[2018-11-29] MEDS: ASCORBIC ACID 500 MG TAB NGT (08:39)
[2018-11-29] MEDS: ISOSORBIDE DINITRATE 20 MG TAB NGT ×3 (08:40→20:25)
[2018-11-29] MEDS: ZINC SULFATE 220 MG CAP NGT (08:40)
[2018-11-29] MEDS: BALSAM PERU/CASTOR OIL 60 GM TUBE TOP ×2 (08:41→20:26)
[2018-11-29] MEDS: FISH OIL 1,000 MG CAP PO ×2 (08:41→20:25)
[2018-11-29] MEDS: FAMOTIDINE 20 MG INJ IV (08:45)
[2018-11-29] MEDS: PROPOFOL 100 ML IV ×2 (10:30→22:30)
[2018-11-29] MEDS: SOD FERRIC GLUC COMPLX 125 MG in SOD CHLORIDE 0.9% 100 ML IVPB (13:48)
[2018-11-29 15:01] LABS: CREATININE, RANDOM URINE 31 mg/dL (20-320); MICROALBUMIN 10.9 mg/dL; MICROALBUMIN/CREATININE RATIO 352 (<30)
[2018-11-29] MEDS: DEXMEDETOMIDINE HCL 200 MCG in SOD CHLORIDE 0.9% 48 ML IV (17:34)
[2018-11-29] MEDS: ATORVASTATIN 40 MG TAB NGT (20:25)
[2018-11-29] MEDS: VANCOMYCIN 1 GM 250 ML IVPB (23:40)
[2018-11-30] MEDS: DEXMEDETOMIDINE HCL 200 MCG in SOD CHLORIDE 0.9% 48 ML IV ×4 (00:45→20:23)
[2018-11-30] MEDS: ALBUTEROL HFA 8 GM INHALER INH ×4 (02:45→20:01)
[2018-11-30 05:12] LABS: ADD MAN DIFF? NO
[2018-11-30 05:19] LABS: BASOPHILS % 0.3 % (0.0-2.0); EOSINOPHILS # 0.3 10^3/ul (0.0-0.5); EOSINOPHILS % 3.1 % (0.0-7.0); HEMATOCRIT 33.8 % (42.0-52.0); HEMOGLOBIN 10.3 g/dl (14.0-18.0); LYMPHOCYTES # 1.2 10^3/ul (0.8-2.9); LYMPHOCYTES % 14.4 % (15.0-51.0); MEAN CORPUSCULAR HEMOGLOBIN 27.7 pg (29.0-33.0); MEAN CORPUSCULAR HGB CONC 30.5 g/dl (32.0-37.0); MEAN CORPUSCULAR VOLUME 90.9 fl (82.0-101.0); MEAN PLATELET VOLUME 11.4 fl (7.4-10.4); MONOCYTE # 0.7 10^3/ul (0.3-0.9); MONOCYTES % 8.4 % (0.0-11.0); NEUTROPHIL # 5.8 10^3/ul (1.6-7.5); NEUTROPHILS % 73.2 % (39.0-77.0); PLATELET COUNT 216 10^3/UL (140-415); RED BLOOD COUNT 3.72 10^6/ul (4.70-6.10); RED CELL DISTRIBUTION WIDTH 15.1 % (11.5-14.5)
[2018-11-30] MEDS: CLINDAMYCIN 300 MG/D5W (PMX) 50 ML IVPB ×3 (05:47→18:02)
[2018-11-30] MEDS: LEVOFLOXACIN 250 MG TAB NGT (05:50)
[2018-11-30] MEDS: INSULIN ASPART [NOVOLOG] 3 ML PEN SC ×5 (05:51→20:19)
[2018-11-30] MEDS: FENTAnyl (DRIP) 1000 mcg/100mL 100 ML IV (05:52)
[2018-11-30 06:08] LABS: ANION GAP 10 (5-13); BLOOD UREA NITROGEN 42 mg/dl (7-20); CARBON DIOXIDE 25 mmol/L (21-31); CHLORIDE 114 mmol/L (97-110); CREATININE 2.27 mg/dl (0.61-1.24); GLUCOSE 205 mg/dl (70-220); MAGNESIUM 2.3 mg/dl (1.7-2.5); PHOSPHORUS 4.2 mg/dl (2.5-4.9); POTASSIUM 4.1 mmol/L (3.5-5.1); SODIUM 149 mmol/L (135-144)
[2018-11-30] MEDS: ACETAMINOPHEN 650MG/20.3ML CUP NGT (06:23)
[2018-11-30] MEDS: FISH OIL 1,000 MG CAP PO ×2 (08:17→20:15)
[2018-11-30] MEDS: ASCORBIC ACID 500 MG TAB NGT (08:17)
[2018-11-30] MEDS: ISOSORBIDE DINITRATE 20 MG TAB NGT ×3 (08:17→20:15)
[2018-11-30] MEDS: ZINC SULFATE 220 MG CAP NGT (08:17)
[2018-11-30] MEDS: ASPIRIN 81 MG TAB NGT (08:17)
[2018-11-30] MEDS: FAMOTIDINE 20 MG INJ IV (08:17)
[2018-11-30] MEDS: BALSAM PERU/CASTOR OIL 60 GM TUBE TOP ×2 (08:18→20:25)
[2018-11-30] MEDS: INSULIN GLARGINE [LANTus] (100 UNITS/ML) SYG SC (08:19)
[2018-11-30] MEDS: ENOXAPARIN 30 MG/0.3 ML SYG SC (08:19)
[2018-11-30] MEDS: METOLAZONE 5 MG TAB PO (08:55)
[2018-11-30] MEDS: PROPOFOL 100 ML IV ×2 (09:50→20:25)
[2018-11-30] MEDS: SOD FERRIC GLUC COMPLX 125 MG in SOD CHLORIDE 0.9% 100 ML IVPB (12:31)
[2018-11-30] MEDS: ATORVASTATIN 40 MG TAB NGT (20:16)
[2018-12-01] MEDS: DEXMEDETOMIDINE HCL 200 MCG in SOD CHLORIDE 0.9% 48 ML IV ×12 (00:02→23:14)
[2018-12-01] MEDS: CLINDAMYCIN 300 MG/D5W (PMX) 50 ML IVPB ×2 (00:02→04:55)
[2018-12-01] MEDS: INSULIN ASPART [NOVOLOG] 3 ML PEN SC ×6 (00:12→21:05)
[2018-12-01] MEDS: VANCOMYCIN 1 GM 250 ML IVPB (00:14)
[2018-12-01] MEDS: ALBUTEROL HFA 8 GM INHALER INH ×5 (01:28→19:58)
[2018-12-01] MEDS: LEVOFLOXACIN 250 MG TAB NGT (04:55)
[2018-12-01 05:22] LABS: ADD MAN DIFF? NO
[2018-12-01 05:43] LABS: BASOPHILS % 0.4 % (0.0-2.0); EOSINOPHILS # 0.2 10^3/ul (0.0-0.5); EOSINOPHILS % 2.6 % (0.0-7.0); HEMATOCRIT 35.3 % (42.0-52.0); HEMOGLOBIN 10.7 g/dl (14.0-18.0); LYMPHOCYTES # 1.3 10^3/ul (0.8-2.9); LYMPHOCYTES % 18.3 % (15.0-51.0); MEAN CORPUSCULAR HEMOGLOBIN 27.9 pg (29.0-33.0); MEAN CORPUSCULAR HGB CONC 30.3 g/dl (32.0-37.0); MEAN CORPUSCULAR VOLUME 91.9 fl (82.0-101.0); MEAN PLATELET VOLUME 11.8 fl (7.4-10.4); MONOCYTE # 0.6 10^3/ul (0.3-0.9); MONOCYTES % 9.1 % (0.0-11.0); NEUTROPHIL # 4.8 10^3/ul (1.6-7.5); NEUTROPHILS % 68.6 % (39.0-77.0); PLATELET COUNT 205 10^3/UL (140-415); RED BLOOD COUNT 3.84 10^6/ul (4.70-6.10); RED CELL DISTRIBUTION WIDTH 14.9 % (11.5-14.5)
[2018-12-01 06:33] LABS: ANION GAP 10 (5-13); BLOOD UREA NITROGEN 44 mg/dl (7-20); CARBON DIOXIDE 25 mmol/L (21-31); CHLORIDE 113 mmol/L (97-110); CREATININE 2.13 mg/dl (0.61-1.24); GLUCOSE 232 mg/dl (70-220); MAGNESIUM 2.3 mg/dl (1.7-2.5); POTASSIUM 3.9 mmol/L (3.5-5.1); SODIUM 148 mmol/L (135-144)
[2018-12-01] MEDS: ASCORBIC ACID 500 MG TAB NGT (08:29)
[2018-12-01] MEDS: ASPIRIN 81 MG TAB NGT (08:29)
[2018-12-01] MEDS: ISOSORBIDE DINITRATE 20 MG TAB NGT ×3 (08:29→20:55)
[2018-12-01] MEDS: FISH OIL 1,000 MG CAP PO ×2 (08:29→20:54)
[2018-12-01] MEDS: ZINC SULFATE 220 MG CAP NGT (08:29)
[2018-12-01] MEDS: BALSAM PERU/CASTOR OIL 60 GM TUBE TOP ×2 (08:30→21:04)
[2018-12-01] MEDS: INSULIN GLARGINE [LANTus] (100 UNITS/ML) SYG SC (08:34)
[2018-12-01] MEDS: FAMOTIDINE 20 MG INJ IV (08:44)
[2018-12-01] MEDS: PROPOFOL 100 ML IV ×2 (09:31→22:30)
[2018-12-01 10:30] LABS: Allen Test ACCEPTAB; Arterial Blood Gas Oxygen Sat 95.5 mmHG (95.0-100.0); Arterial COHb 0.3 % (0.0-3.0); Arterial Fraction of Oxyhgb 94.8 % (93.0-99.0); Arterial HCO3 25.8 mmol/L (22.0-26.0); Arterial MetHb 0.4 % (0.0-1.5); Arterial pCO2 52.1 mmhg (35-45); Blood Gas PS 10; MODE VENT - CPAP; Site Right Radial
[2018-12-01] MEDS: FENTAnyl (DRIP) 1000 mcg/100mL 100 ML IV ×2 (13:31→23:08)
[2018-12-01] MEDS: ATORVASTATIN 40 MG TAB NGT (20:55)
[2018-12-02] MEDS: INSULIN ASPART [NOVOLOG] 3 ML PEN SC ×6 (00:53→20:41)
[2018-12-02] MEDS: ALBUTEROL HFA 8 GM INHALER INH ×4 (01:49→19:37)
[2018-12-02] MEDS: DEXMEDETOMIDINE HCL 200 MCG in SOD CHLORIDE 0.9% 48 ML IV ×6 (02:02→23:42)
[2018-12-02 05:06] LABS: ADD MAN DIFF? NO
[2018-12-02 05:17] LABS: WHITE BLOOD COUNT 8.4 10^3/ul (4.8-10.8)
[2018-12-02 05:17] LABS: BASOPHIL # 0.1 10^3/ul (0.0-0.1); BASOPHILS % 0.6 % (0.0-2.0); EOSINOPHILS # 0.2 10^3/ul (0.0-0.5); EOSINOPHILS % 2.1 % (0.0-7.0); HEMOGLOBIN 11.5 g/dl (14.0-18.0); LYMPHOCYTES % 11.7 % (15.0-51.0); MEAN CORPUSCULAR HEMOGLOBIN 28.2 pg (29.0-33.0); MEAN CORPUSCULAR HGB CONC 31.1 g/dl (32.0-37.0); MEAN CORPUSCULAR VOLUME 90.7 fl (82.0-101.0); MEAN PLATELET VOLUME 11.7 fl (7.4-10.4); MONOCYTE # 0.6 10^3/ul (0.3-0.9); MONOCYTES % 7.5 % (0.0-11.0); NEUTROPHIL # 6.5 10^3/ul (1.6-7.5); PLATELET COUNT 224 10^3/UL (140-415); RED BLOOD COUNT 4.08 10^6/ul (4.70-6.10); RED CELL DISTRIBUTION WIDTH 14.7 % (11.5-14.5)
[2018-12-02] MEDS: LEVOFLOXACIN 250 MG TAB NGT (05:36)
[2018-12-02 05:51] LABS: ANION GAP 10 (5-13); BLOOD UREA NITROGEN 51 mg/dl (7-20); CALCIUM 9.2 mg/dl (8.4-10.2); CARBON DIOXIDE 25 mmol/L (21-31); CHLORIDE 111 mmol/L (97-110); CREATININE 2.08 mg/dl (0.61-1.24); GLUCOSE 218 mg/dl (70-220); MAGNESIUM 2.3 mg/dl (1.7-2.5); PHOSPHORUS 5.2 mg/dl (2.5-4.9); SODIUM 146 mmol/L (135-144)
[2018-12-02 07:24] LABS: Allen Test ACCEPTAB; Arterial Base Excess 1.6 mmol/L (-3.0-3); Arterial Blood Gas Oxygen Sat 95.8 mmHG (95.0-100.0); Arterial COHb 0.3 % (0.0-3.0); Arterial Fraction of Oxyhgb 95.3 % (93.0-99.0); Arterial HCO3 24.3 mmol/L (22.0-26.0); Arterial MetHb 0.2 % (0.0-1.5); MODE VENT - AC; Site Right Radial
[2018-12-02] MEDS: INSULIN GLARGINE [LANTus] (100 UNITS/ML) SYG SC (08:00)
[2018-12-02] MEDS ORDERED: DOCUSATE SODIUM 10 MG/ML (10ML CUP) NGT (09:00)
[2018-12-02] MEDS ORDERED: ONDANSETRON 4 MG INJ (10:16)
[2018-12-02] MEDS: PROPOFOL 100 ML IV ×2 (10:30→22:30)
[2018-12-02] MEDS: FISH OIL 1,000 MG CAP PO ×2 (11:01→20:37)
[2018-12-02] MEDS: ASCORBIC ACID 500 MG TAB NGT (11:01)
[2018-12-02] MEDS: ENOXAPARIN 30 MG/0.3 ML SYG SC (11:03)
[2018-12-02] MEDS: BALSAM PERU/CASTOR OIL 60 GM TUBE TOP ×2 (11:04→20:39)
[2018-12-02] MEDS: ASPIRIN 81 MG TAB NGT (11:07)
[2018-12-02] MEDS: ISOSORBIDE DINITRATE 20 MG TAB NGT ×3 (11:07→20:38)
[2018-12-02] MEDS: ZINC SULFATE 220 MG CAP NGT (11:09)
[2018-12-02] MEDS: FAMOTIDINE 20 MG INJ IV (11:10)
[2018-12-02 12:24] LABS: Allen Test ACCEPTAB; Arterial Blood Gas Oxygen Sat 93.3 mmHG (95.0-100.0); Arterial COHb 0.1 % (0.0-3.0); Arterial Fraction of Oxyhgb 92.9 % (93.0-99.0); Arterial HCO3 25.3 mmol/L (22.0-26.0); Arterial MetHb 0.3 % (0.0-1.5); Arterial pCO2 53.7 mmhg (35-45); Blood Gas PS 10; MODE VENT - CPAP; Site Right Radial
[2018-12-02 13:04] LABS: SODIUM,URINE RANDOM 86 mmol/L (30-90)
[2018-12-02 13:57] LABS: OSMOLALITY,URINE 457 mOsm/kg (250-1200)
[2018-12-02] MEDS: LORAZEPAM 2 MG INJ IV (19:45)
[2018-12-02] MEDS: ATORVASTATIN 40 MG TAB NGT (20:38)
[2018-12-03] MEDS: INSULIN ASPART [NOVOLOG] 3 ML PEN SC ×6 (00:59→20:35)
[2018-12-03] MEDS: ALBUTEROL HFA 8 GM INHALER INH ×4 (01:00→19:30)
[2018-12-03] MEDS: DEXMEDETOMIDINE HCL 200 MCG in SOD CHLORIDE 0.9% 48 ML IV ×3 (02:35→06:37)
[2018-12-03 05:08] LABS: ADD MAN DIFF? NO
[2018-12-03 05:11] LABS: WHITE BLOOD COUNT 8.5 10^3/ul (4.8-10.8)
[2018-12-03 05:11] LABS: BASOPHILS % 0.4 % (0.0-2.0); EOSINOPHILS # 0.2 10^3/ul (0.0-0.5); EOSINOPHILS % 2.7 % (0.0-7.0); HEMATOCRIT 36.3 % (42.0-52.0); HEMOGLOBIN 11.3 g/dl (14.0-18.0); LYMPHOCYTES # 1.1 10^3/ul (0.8-2.9); LYMPHOCYTES % 13.2 % (15.0-51.0); MEAN CORPUSCULAR HEMOGLOBIN 27.6 pg (29.0-33.0); MEAN CORPUSCULAR HGB CONC 31.1 g/dl (32.0-37.0); MEAN CORPUSCULAR VOLUME 88.8 fl (82.0-101.0); MEAN PLATELET VOLUME 11.9 fl (7.4-10.4); MONOCYTE # 0.5 10^3/ul (0.3-0.9); MONOCYTES % 6.3 % (0.0-11.0); NEUTROPHIL # 6.6 10^3/ul (1.6-7.5); NEUTROPHILS % 76.7 % (39.0-77.0); PLATELET COUNT 249 10^3/UL (140-415); RED BLOOD COUNT 4.09 10^6/ul (4.70-6.10); RED CELL DISTRIBUTION WIDTH 14.6 % (11.5-14.5)
[2018-12-03] MEDS: LEVOFLOXACIN 250 MG TAB NGT (05:16)
[2018-12-03 05:43] LABS: ANION GAP 11 (5-13); BLOOD UREA NITROGEN 58 mg/dl (7-20); CALCIUM 8.9 mg/dl (8.4-10.2); CARBON DIOXIDE 25 mmol/L (21-31); CHLORIDE 112 mmol/L (97-110); CREATININE 2.16 mg/dl (0.61-1.24); GLUCOSE 184 mg/dl (70-220); MAGNESIUM 2.3 mg/dl (1.7-2.5); PHOSPHORUS 5.4 mg/dl (2.5-4.9); POTASSIUM 3.6 mmol/L (3.5-5.1); SODIUM 148 mmol/L (135-144)
[2018-12-03] MEDS: FAMOTIDINE 20 MG INJ IV (09:00)
[2018-12-03] MEDS: INSULIN GLARGINE [LANTus] (100 UNITS/ML) SYG SC (09:28)
[2018-12-03] MEDS: ASPIRIN 81 MG TAB NGT (09:42)
[2018-12-03] MEDS: ASCORBIC ACID 500 MG TAB NGT (09:42)
[2018-12-03] MEDS: FISH OIL 1,000 MG CAP PO ×2 (09:42→20:27)
[2018-12-03] MEDS: ISOSORBIDE DINITRATE 20 MG TAB NGT ×3 (09:43→20:32)
[2018-12-03] MEDS: ZINC SULFATE 220 MG CAP NGT (09:43)
[2018-12-03] MEDS: ENOXAPARIN 30 MG/0.3 ML SYG SC (09:44)
[2018-12-03] MEDS: BALSAM PERU/CASTOR OIL 60 GM TUBE TOP ×2 (09:45→21:25)
[2018-12-03] MEDS: DEXTROSE 5% 1,000 ML IV (09:47)
[2018-12-03] MEDS: PROPOFOL 100 ML IV ×2 (10:30→20:25)
[2018-12-03] MEDS: LORAZEPAM 2 MG INJ IV (13:16)
[2018-12-03 14:47] LABS: AADO2 Arterial 64.3 mmHg (7.0-24.0); Allen Test ACCEPTAB; Arterial Blood Gas Oxygen Sat 90.7 mmHG (95.0-100.0); Arterial COHb 0.3 % (0.0-3.0); Arterial Fraction of Oxyhgb 90.1 % (93.0-99.0); Arterial HCO3 27.5 mmol/L (22.0-26.0); Arterial MetHb 0.4 % (0.0-1.5); Arterial pCO2 64.8 mmhg (35-45); Blood Gas PS 10; MODE VENT - CPAP; Site Right Radial
[2018-12-03] MEDS: ATORVASTATIN 40 MG TAB NGT (20:27)
[2018-12-04] MEDS: PROPOFOL 100 ML IV ×2 (01:01→05:37)
[2018-12-04] MEDS: INSULIN ASPART [NOVOLOG] 3 ML PEN SC ×6 (01:02→21:10)
[2018-12-04] MEDS: ALBUTEROL HFA 8 GM INHALER INH ×3 (02:24→13:31)
[2018-12-04 05:46] LABS: ADD MAN DIFF? NO
[2018-12-04 05:51] LABS: BASOPHILS % 0.4 % (0.0-2.0); EOSINOPHILS # 0.2 10^3/ul (0.0-0.5); EOSINOPHILS % 2.3 % (0.0-7.0); HEMATOCRIT 33.9 % (42.0-52.0); HEMOGLOBIN 10.4 g/dl (14.0-18.0); LYMPHOCYTES % 10.6 % (15.0-51.0); MEAN CORPUSCULAR HEMOGLOBIN 27.2 pg (29.0-33.0); MEAN CORPUSCULAR HGB CONC 30.7 g/dl (32.0-37.0); MEAN CORPUSCULAR VOLUME 88.5 fl (82.0-101.0); MEAN PLATELET VOLUME 12.2 fl (7.4-10.4); MONOCYTE # 0.6 10^3/ul (0.3-0.9); MONOCYTES % 5.8 % (0.0-11.0); NEUTROPHIL # 7.8 10^3/ul (1.6-7.5); PLATELET COUNT 271 10^3/UL (140-415); RED BLOOD COUNT 3.83 10^6/ul (4.70-6.10); RED CELL DISTRIBUTION WIDTH 14.6 % (11.5-14.5)
[2018-12-04 05:51] LABS: WHITE BLOOD COUNT 9.7 10^3/ul (4.8-10.8)
[2018-12-04 06:50] LABS: B-TYPE NATRIURETIC PEPTIDE 1630 PG/ML (0-450)
[2018-12-04 06:52] LABS: ANION GAP 12 (5-13); BLOOD UREA NITROGEN 57 mg/dl (7-20); CALCIUM 8.9 mg/dl (8.4-10.2); CARBON DIOXIDE 24 mmol/L (21-31); CHLORIDE 112 mmol/L (97-110); CREATININE 2.28 mg/dl (0.61-1.24); GLUCOSE 140 mg/dl (70-220); MAGNESIUM 2.4 mg/dl (1.7-2.5); PHOSPHORUS 4.3 mg/dl (2.5-4.9); POTASSIUM 3.2 mmol/L (3.5-5.1); SODIUM 148 mmol/L (135-144)
[2018-12-04] MEDS: INSULIN GLARGINE [LANTus] (100 UNITS/ML) SYG SC (08:07)
[2018-12-04] MEDS: LEVOFLOXACIN 250 MG TAB NGT (08:12)
[2018-12-04] MEDS: POTASSIUM CHLORIDE 20 MEQ POWDER FOR ORAL SOLN GTB (08:12)
[2018-12-04] MEDS: DEXTROSE 5% 1,000 ML IV (08:13)
[2018-12-04] MEDS: FAMOTIDINE 20 MG INJ IV (09:00)
[2018-12-04] MEDS: BALSAM PERU/CASTOR OIL 60 GM TUBE TOP ×2 (09:38→21:16)
[2018-12-04] MEDS: ENOXAPARIN 30 MG/0.3 ML SYG SC (09:39)
[2018-12-04] MEDS: FISH OIL 1,000 MG CAP PO ×2 (09:40→21:03)
[2018-12-04] MEDS: ASCORBIC ACID 500 MG TAB NGT (09:40)
[2018-12-04] MEDS: ZINC SULFATE 220 MG CAP NGT (09:40)
[2018-12-04] MEDS: ASPIRIN 81 MG TAB NGT (09:41)
[2018-12-04] MEDS: ISOSORBIDE DINITRATE 20 MG TAB NGT ×3 (09:42→21:02)
[2018-12-04] MEDS: DEXMEDETOMIDINE HCL 200 MCG in SOD CHLORIDE 0.9% 48 ML IV (13:37)
[2018-12-04 14:38] LABS: AADO2 Arterial 76.8 mmHg (7.0-24.0); Allen Test ACCEPTAB; Arterial Base Excess 0.8 mmol/L (-3.0-3); Arterial Blood Gas Oxygen Sat 96.4 mmHG (95.0-100.0); Arterial COHb 0.5 % (0.0-3.0); Arterial Fraction of Oxyhgb 95.7 % (93.0-99.0); Arterial HCO3 25.3 mmol/L (22.0-26.0); Arterial MetHb 0.2 % (0.0-1.5); Arterial pCO2 39.9 mmhg (35-45); Blood Gas PS 10; MODE VENT - CPAP; Site Right Radial
[2018-12-04] MEDS: hydrALAzine 20 MG INJ IV (19:04)
[2018-12-04] MEDS: ALBUTEROL 0.083% (NEB) 2.5 MG/3 ML AMP HHN (20:15)
[2018-12-04] MEDS: ATORVASTATIN 40 MG TAB NGT (21:02)
[2018-12-04] MEDS: ONDANSETRON 4 MG INJ IV (21:54)
[2018-12-05] MEDS: INSULIN ASPART [NOVOLOG] 3 ML PEN SC ×6 (00:49→20:48)
[2018-12-05] MEDS: ACETAMINOPHEN 650MG/20.3ML CUP NGT (01:04)
[2018-12-05] MEDS: DEXTROSE 5% 1,000 ML IV ×3 (02:00→20:43)
[2018-12-05] MEDS: ALBUTEROL 0.083% (NEB) 2.5 MG/3 ML AMP HHN ×4 (02:02→20:15)
[2018-12-05 04:46] LABS: AADO2 Arterial 61.8 mmHg (7.0-24.0); Allen Test ACCEPTAB; Arterial Base Excess -1.1 mmol/L (-3.0-3); Arterial Blood Gas Oxygen Sat 95.1 mmHG (95.0-100.0); Arterial COHb 0.6 % (0.0-3.0); Arterial Fraction of Oxyhgb 94.2 % (93.0-99.0); Arterial HCO3 24.1 mmol/L (22.0-26.0); Arterial MetHb 0.3 % (0.0-1.5); Arterial pCO2 42.2 mmhg (35-45); MODE NASAL CANNULA; Site Left Radial
[2018-12-05] MEDS: LEVOFLOXACIN 250 MG TAB NGT (05:07)
[2018-12-05 05:19] LABS: ADD MAN DIFF? NO
[2018-12-05 05:30] LABS: BASOPHIL # 0.1 10^3/ul (0.0-0.1); BASOPHILS % 0.5 % (0.0-2.0); EOSINOPHILS # 0.1 10^3/ul (0.0-0.5); EOSINOPHILS % 0.9 % (0.0-7.0); HEMOGLOBIN 11.3 g/dl (14.0-18.0); LYMPHOCYTES # 0.9 10^3/ul (0.8-2.9); LYMPHOCYTES % 7.6 % (15.0-51.0); MEAN CORPUSCULAR HEMOGLOBIN 27.4 pg (29.0-33.0); MEAN CORPUSCULAR HGB CONC 29.7 g/dl (32.0-37.0); MONOCYTE # 0.7 10^3/ul (0.3-0.9); MONOCYTES % 6.5 % (0.0-11.0); NEUTROPHIL # 9.4 10^3/ul (1.6-7.5); NEUTROPHILS % 83.6 % (39.0-77.0); PLATELET COUNT 314 10^3/UL (140-415); RED BLOOD COUNT 4.13 10^6/ul (4.70-6.10); RED CELL DISTRIBUTION WIDTH 14.5 % (11.5-14.5)
[2018-12-05 05:30] LABS: WHITE BLOOD COUNT 11.3 10^3/ul (4.8-10.8)
[2018-12-05 05:52] LABS: ANION GAP 13 (5-13); BLOOD UREA NITROGEN 49 mg/dl (7-20); CALCIUM 8.8 mg/dl (8.4-10.2); CARBON DIOXIDE 26 mmol/L (21-31); CHLORIDE 110 mmol/L (97-110); GLUCOSE 181 mg/dl (70-220); POTASSIUM 3.7 mmol/L (3.5-5.1); SODIUM 149 mmol/L (135-144)
[2018-12-05] MEDS: ASCORBIC ACID 500 MG TAB NGT (08:24)
[2018-12-05] MEDS: FISH OIL 1,000 MG CAP PO ×2 (08:24→20:44)
[2018-12-05] MEDS: ASPIRIN 81 MG TAB NGT (08:24)
[2018-12-05] MEDS: ZINC SULFATE 220 MG CAP NGT (08:24)
[2018-12-05] MEDS: ISOSORBIDE DINITRATE 20 MG TAB NGT ×3 (08:25→20:44)
[2018-12-05] MEDS: ENOXAPARIN 30 MG/0.3 ML SYG SC (08:27)
[2018-12-05] MEDS: INSULIN GLARGINE [LANTus] (100 UNITS/ML) SYG SC (08:28)
[2018-12-05] MEDS: BALSAM PERU/CASTOR OIL 60 GM TUBE TOP ×2 (08:29→20:46)
[2018-12-05] MEDS: FAMOTIDINE 20 MG INJ IV (11:07)
[2018-12-05] MEDS: ATORVASTATIN 40 MG TAB NGT (20:43)
[2018-12-05] MEDS ORDERED: GLUCOSE GEL 15 GRAM TUBE PO ×2 (22:30)
[2018-12-05] MEDS ORDERED: GLUCOSE GEL 15 GRAM TUBE BUCCAL (22:30)
[2018-12-05] MEDS ORDERED: DEXTROSE 50% 50 ML SYRINGE IV ×2 (22:30)
[2018-12-05] MEDS ORDERED: GLUCAGON 1 MG INJ IM (22:30)
[2018-12-06] MEDS ORDERED: ACETAMINOPHEN 650MG/20.3ML CUP PO (01:30)
[2018-12-06] MEDS: ACCU-CHEK XX (02:00)
[2018-12-06] MEDS: ALBUTEROL 0.083% (NEB) 2.5 MG/3 ML AMP HHN ×4 (02:00→20:49)
[2018-12-06] MEDS: LEVOFLOXACIN 250 MG TAB PO (05:17)
[2018-12-06 05:18] LABS: ADD MAN DIFF? NO
[2018-12-06] MEDS: DEXTROSE 5% 1,000 ML IV (05:20)
[2018-12-06 05:22] LABS: BASOPHILS % 0.4 % (0.0-2.0); EOSINOPHILS # 0.2 10^3/ul (0.0-0.5); EOSINOPHILS % 1.5 % (0.0-7.0); HEMATOCRIT 37.4 % (42.0-52.0); HEMOGLOBIN 11.3 g/dl (14.0-18.0); LYMPHOCYTES # 0.9 10^3/ul (0.8-2.9); MEAN CORPUSCULAR HEMOGLOBIN 27.5 pg (29.0-33.0); MEAN CORPUSCULAR HGB CONC 30.2 g/dl (32.0-37.0); MEAN PLATELET VOLUME 11.5 fl (7.4-10.4); MONOCYTE # 0.6 10^3/ul (0.3-0.9); MONOCYTES % 5.5 % (0.0-11.0); NEUTROPHIL # 8.6 10^3/ul (1.6-7.5); NEUTROPHILS % 82.8 % (39.0-77.0); PLATELET COUNT 306 10^3/UL (140-415); RED BLOOD COUNT 4.11 10^6/ul (4.70-6.10); RED CELL DISTRIBUTION WIDTH 14.1 % (11.5-14.5)
[2018-12-06 05:22] LABS: WHITE BLOOD COUNT 10.3 10^3/ul (4.8-10.8)
[2018-12-06 05:59] LABS: ANION GAP 9 (5-13); BLOOD UREA NITROGEN 39 mg/dl (7-20); CALCIUM 8.9 mg/dl (8.4-10.2); CARBON DIOXIDE 28 mmol/L (21-31); CHLORIDE 108 mmol/L (97-110); CREATININE 1.76 mg/dl (0.61-1.24); GLUCOSE 206 mg/dl (70-220); MAGNESIUM 2.3 mg/dl (1.7-2.5); PHOSPHORUS 3.6 mg/dl (2.5-4.9); POTASSIUM 3.9 mmol/L (3.5-5.1); SODIUM 145 mmol/L (135-144)
[2018-12-06] MEDS: ZINC SULFATE 220 MG CAP PO (08:24)
[2018-12-06] MEDS: ASPIRIN 81 MG TAB PO (08:24)
[2018-12-06] MEDS: FISH OIL 1,000 MG CAP PO ×2 (08:24→20:06)
[2018-12-06] MEDS: ASCORBIC ACID 500 MG TAB PO (08:24)
[2018-12-06] MEDS: FAMOTIDINE 20 MG INJ IV (08:26)
[2018-12-06] MEDS: LORAZEPAM 2 MG INJ IV (08:47)
[2018-12-06] MEDS: INSULIN ASPART [NOVOLOG] 3 ML PEN SC ×4 (08:59→20:14)
[2018-12-06] MEDS: BALSAM PERU/CASTOR OIL 60 GM TUBE TOP ×2 (09:00→21:25)
[2018-12-06] MEDS: ISOSORBIDE DINITRATE 20 MG TAB PO ×3 (09:00→20:06)
[2018-12-06] MEDS: INSULIN GLARGINE [LANTus] (100 UNITS/ML) SYG SC (09:02)
[2018-12-06] MEDS: ENOXAPARIN 30 MG/0.3 ML SYG SC (09:06)
[2018-12-06] MEDS: FUROSEMIDE 20 MG INJ IV (15:57)
[2018-12-06] MEDS: ATORVASTATIN 40 MG TAB PO (20:07)
[2018-12-07] MEDS: ALBUTEROL 0.083% (NEB) 2.5 MG/3 ML AMP HHN ×3 (02:00→13:21)
[2018-12-07] MEDS: hydrALAzine 20 MG INJ IV (03:57)
[2018-12-07] MEDS ORDERED: PENDING SANTYL ORDER FOR WOUND CARE XX (05:30)
[2018-12-07] MEDS: LEVOFLOXACIN 250 MG TAB PO (05:39)
[2018-12-07 06:53] LABS: ANION GAP 9 (5-13); BLOOD UREA NITROGEN 35 mg/dl (7-20); CARBON DIOXIDE 28 mmol/L (21-31); CHLORIDE 107 mmol/L (97-110); CREATININE 1.57 mg/dl (0.61-1.24); GLUCOSE 176 mg/dl (70-220); MAGNESIUM 2.1 mg/dl (1.7-2.5); PHOSPHORUS 3.6 mg/dl (2.5-4.9); POTASSIUM 3.9 mmol/L (3.5-5.1); SODIUM 144 mmol/L (135-144)
[2018-12-07] MEDS: INSULIN ASPART [NOVOLOG] 3 ML PEN SC ×3 (08:27→17:40)
[2018-12-07] MEDS: INSULIN GLARGINE [LANTus] (100 UNITS/ML) SYG SC (08:29)
[2018-12-07] MEDS: ENOXAPARIN 30 MG/0.3 ML SYG SC (08:30)
[2018-12-07] MEDS: ISOSORBIDE DINITRATE 20 MG TAB PO ×2 (08:36→12:37)
[2018-12-07] MEDS: ZINC SULFATE 220 MG CAP PO (08:36)
[2018-12-07] MEDS: ASCORBIC ACID 500 MG TAB PO (08:36)
[2018-12-07] MEDS: ASPIRIN 81 MG TAB PO (08:37)
[2018-12-07] MEDS: FISH OIL 1,000 MG CAP PO (08:37)
[2018-12-07] MEDS: BALSAM PERU/CASTOR OIL 60 GM TUBE TOP (09:00)
[2018-12-07] MEDS: FUROSEMIDE 20 MG INJ IV ×2 (09:41→17:39)
[2018-12-07] MEDS: FAMOTIDINE 20 MG INJ IV (09:41)
[2018-12-07] MEDS: ONDANSETRON 4 MG INJ IV (11:38)
== END 2018-12-07 18:34 | DRG 207 ==
LOC: ICU 12-01 20:35 → PP2 12-07 02:20 → E/R 01:53 → 6WM 12-05 22:39 → ICU 04:04
PROVIDERS: Family Medicine
PROC: 5A1945Z Respiratory Ventilation, 24-96 Consecutive Hours (ICD-10-PCS; 2018-11-23)
PROC: 5A12012 Performance of Cardiac Output, Single, Manual (ICD-10-PCS; 2018-11-23)
PROC: 0BH18EZ Insertion of Endotracheal Airway into Trachea, Via Natural or Artificial Opening Endoscopic (ICD-10-PCS; 2018-11-23)
PROC: 02HV33Z Insertion of Infusion Device into Superior Vena Cava, Percutaneous Approach (ICD-10-PCS; 2018-11-23)
PROC: 5A1955Z Respiratory Ventilation, Greater than 96 Consecutive Hours (ICD-10-PCS; principal; 2018-11-24)
PROC: 0BH18EZ Insertion of Endotracheal Airway into Trachea, Via Natural or Artificial Opening Endoscopic (ICD-10-PCS; 2018-11-24)
DX: J96.02 Acute respiratory failure with hypercapnia (principal); J69.0 Pneumonitis due to inhalation of food and vomit; I50.23 Acute on chronic systolic (congestive) heart failure; I46.2 Cardiac arrest due to underlying cardiac condition; N17.0 Acute kidney failure with tubular necrosis; G93.1 Anoxic brain damage, not elsewhere classified; Z68.41 Body mass index [BMI] 40.0-44.9, adult; I42.9 Cardiomyopathy, unspecified; E87.0 Hyperosmolality and hypernatremia; I11.0 Hypertensive heart disease with heart failure; E66.01 Morbid (severe) obesity due to excess calories; J96.01 Acute respiratory failure with hypoxia; I16.0 Hypertensive urgency; E11.9 Type 2 diabetes mellitus without complications; E83.42 Hypomagnesemia; I27.20 Pulmonary hypertension, unspecified; E78.5 Hyperlipidemia, unspecified; E87.6 Hypokalemia; R13.10 Dysphagia, unspecified; I71.9 Aortic aneurysm of unspecified site, without rupture
CPT/HCPCS: 31500; 36415; 36600; 70450; 71045; 71275; 74018; 76700; 76775; 80048; 80053; 80061; 80202; 81001; 81003; 82043; 82550; 82553; 82803; 82962; 83036; 83540; 83735; 83880; 83935; 84100; 84145; 84155; 84300; 84439; 84443; 84484; 85025; 85610; 85730; 87040-91; 87070; 87081; 87086; 87103; 89220; 92610; 92950; 93005; 93306; 94002; 94003; 94640; 94664; 94770; 96365; 97162; 99285-25